=== PATIENT | female | born 2000 | race African-American/Black ===

== ENCOUNTER 2024-02-27 15:01 | Outpatient (REF) | payer SELFPAY | END 2024-02-27 15:02 | disposition home or self-care (01) | LOC: HO.HHCL 15:01 | PROVIDERS: Visit Provider Family Medicine | DX: Z13.89 Encounter for screening for other disorder (principal) ==

== ENCOUNTER 2024-04-30 13:52 | Outpatient (REF) | payer SELFPAY ==
[2024-04-30 16:27] LABS: MANUAL DIFF FLAG NO
[2024-04-30 16:33] LABS: Basophils Percent Auto 0.8 % (0-2); Eosinophils Percent Auto 0.8 % (0-4); Hematocrit 34.8 % (37.0-47.0); Hemoglobin 10.6 g/dl (12.0-16.0); Lymphocytes Absolute Auto 2.1 X10*3/uL (1.2-4.9); Lymphocytes Percent Auto 42.7 % (20-40); Mean Corpuscular HGB Conc 30.5 g/dl (31.0-35.0); Mean Corpuscular Hemoglobin 24.8 pg (27.0-33.0); Mean Corpuscular Volume 81.3 fL (80.0-98.0); Mean Platelet Volume 11.2 fL (9.4-12.3); Monocytes Absolute Auto 0.3 X10*3/uL (0.1-1.2); Monocytes Percent Auto 5.3 % (2-11); Neutrophils Absolute Auto 2.5 x10*3/uL (2.0-8.3); Neutrophils Percent Auto 50.4 % (45-73); Platelet Count 349 X10*3/uL (160-400); Red Blood Count 4.28 X10*6/uL (4.20-5.50); Red Cell Distribution Width 14.9 % (11.0-16.0); White Blood Count 4.9 X10*3/uL (4.8-10.8)
[2024-04-30 21:20] LABS: Procalcitonin < 0.02 ng/mL; TSH reflex Free T4 1.05 uIU/mL (0.32-4.0)
[2024-04-30 21:24] LABS: Anion Gap 15 (12-20); Blood Urea Nitrogen 7 mg/dL (9-16); Carbon Dioxide 21 mmol/L (22-29); Chloride 106 mmol/L (96-108); Estimated Glomerular Filt Rate > 60; Glucose Random 79 mg/dL (60-115); Potassium 3.6 mmol/L (3.3-5.1); Sodium 138 mmol/L (135-145)
[2024-05-18 00:04] LABS: Estradiol Free 1.64 pg/mL; Estradiol, Ultrasensitive 75 pg/mL
== END 2024-04-30 13:53 | disposition home or self-care (01) ==
LOC: HO.HHCL 13:52
PROVIDERS: Visit Provider Family Medicine
DX: N91.1 Secondary amenorrhea (principal)
CPT/HCPCS: 36415; 80048; 82670; 82681; 83001; 84145; 84403; 84443; 85025